=== PATIENT | male | born 1965 | race Caucasian/White ===

== ENCOUNTER → 2017-10-28 | Outpatient (CLI) | payer OTHER ==
[~2017-10-28] MED LIST: ALBUAER; AZITTAB PO; MELO15TA3 PO; PLMINUNK; PRED50TA PO
[2017-10-28 18:22] LABS: INFLUENZA B ANTIGEN Neg for Influ B (NEG)
== END | disposition home or self-care (01) ==
LOC: C.LABSPEC 17:24
PROVIDERS: ATTEND Family Medicine
DX: R05 Cough (principal)